=== PATIENT | female | born 1970 | race Two or more races ===

== ENCOUNTER → 2017-06-25 | Outpatient (CLI) | payer OTHER | END | disposition home or self-care (01) | LOC: HKI 14:25 | DX: M23.251 Derangement of posterior horn of lateral meniscus due to old tear or injury, right knee (principal); M25.561 Pain in right knee; F32.9 Major depressive disorder, single episode, unspecified; F41.9 Anxiety disorder, unspecified; Z72.0 Tobacco use; Z98.84 Bariatric surgery status | CPT/HCPCS: Z7500 ==

== ENCOUNTER → 2017-09-10 | Outpatient (CLI) | payer OTHER | END | disposition home or self-care (01) | LOC: HKI 14:08 | DX: Z01.818 Encounter for other preprocedural examination (principal) | CPT/HCPCS: Z7500 ==

== ENCOUNTER 2017-09-11 06:31 | Day surgery (SDC) | payer OTHER ==
[~2017-09-11 06:31] MED LIST: CEFAZOLIN SODIUM 2GM/D5W 50 X1 IVPB
[2017-09-11] MEDS ORDERED: METOCLOPRAMIDE 10 MG INJ (07:00)
[2017-09-11] MEDS ORDERED: DEXAMETHASONE 4 MG/ML 1 ML INJ (07:00)
[2017-09-11] MEDS: ONDANSETRON 4 MG INJ IV (08:27)
[2017-09-11] MEDS: ACETAMINOPHEN 1000MG/100ML IV 100 ML IVPB ×2 (08:27→12:21)
[2017-09-11] MEDS: CELECOXIB 200 MG CAP PO (08:27)
[2017-09-11] MEDS: DEXAMETHASONE 4 MG/ML 1 ML INJ IV (08:27)
[2017-09-11] MEDS: oxyCODONE (CR) 10 MG TAB [oxyCONTIN] PO (08:28)
[2017-09-11] MEDS: LANSOPRAZOLE 30 MG CAP PO (08:28)
[2017-09-11] MEDS ORDERED: MIDAZOLAM 1 MG/ML 2 ML INJ (08:34)
[2017-09-11] MEDS ORDERED: FENTAnyl 50 MCG/ML VIAL (08:34)
[2017-09-11] MEDS ORDERED: HYDROCODONE/APAP (5/325) TAB PO ×2 (09:00)
[2017-09-11] MEDS ORDERED: ONDANSETRON 4 MG INJ IV ×2 (09:00→11:00)
[2017-09-11] MEDS ORDERED: CLINDAMYCIN 900 MG/D5W (PMX) 50 ML IVPB (09:59)
[2017-09-11] MEDS ORDERED: ONDANSETRON 4 MG INJ (09:59)
[2017-09-11] MEDS ORDERED: LIDOCAINE 2% (SDV) 5 ML INJ (09:59)
[2017-09-11] MEDS ORDERED: PROPOFOL 20 ML (09:59)
[2017-09-11] MEDS: LIDOCAINE 1% (MPF) 30 ML INJ INJ (10:15)
[2017-09-11] MEDS: TRIAMCINOLONE ACET 40 MG/ML INJ INJ (10:15)
[2017-09-11] MEDS ORDERED: HYDROmorphONE (0.2 MG/ML) 10ML SYG IV ×2 (10:37→11:00)
[2017-09-11] MEDS: HYDROmorphONE (0.2 MG/ML) 10ML SYG IV ×2 (10:50→10:58)
[2017-09-11] MEDS ORDERED: KETOROLAC 30 MG INJ IV (11:00)
[2017-09-11] MEDS ORDERED: FENTAnyl 50 MCG/ML VIAL IV ×2 (11:00)
== END 2017-09-11 13:12 | disposition home or self-care (01) ==
LOC: SDS 06:31
DX: M23.251 Derangement of posterior horn of lateral meniscus due to old tear or injury, right knee (principal); M23.221 Derangement of posterior horn of medial meniscus due to old tear or injury, right knee; M94.261 Chondromalacia, right knee; E66.9 Obesity, unspecified; Z68.39 Body mass index [BMI] 39.0-39.9, adult
CPT/HCPCS: 29880

== ENCOUNTER → 2017-09-21 | Outpatient (CLI) | payer OTHER | END | disposition home or self-care (01) | LOC: HKI 10:52 | DX: Z47.89 Encounter for other orthopedic aftercare (principal); S83.281D Other tear of lateral meniscus, current injury, right knee, subsequent encounter; S83.241D Other tear of medial meniscus, current injury, right knee, subsequent encounter ==